=== PATIENT | female | born 1955 | race Caucasian/White ===

== ENCOUNTER 2025-03-03 12:44 | Outpatient (CLI) | payer MEDICARE ==
--- NOTE | 2025-03-03 14:38 | VASCULAR REPORT ---
Right lower extremity venous duplex Clinical History: Pain Comparison: None Technique: Duplex Doppler evaluation of the deep venous system of the right lower extremity from the common femo ral vein to the popliteal vein including color Doppler and spectral/pulsed waveform analysis was perf ormed. Findings: The common femoral vein demonstrates appropriate compressibility and waveform variability. There is compressibility/patency of the great saphenous vein at the proximal thigh. The femoral vein demonstrates appropriate compressibility and waveform variability. The deep femoral vein demonstrates appropriate compressibility and waveform variability. The popliteal vein demonstrates appropriate compressibility and waveform variability. There is normal compressibility at the tibioperoneal trunk. Impression: No right femoropopliteal venous thrombosis. Contralateral common femoral vein is patent.
== END 2025-03-03 23:59 | disposition home or self-care (01) ==
LOC: VAS 12:44
PROVIDERS: ATTEND Specialist
DX: I83.891 Varicose veins of right lower extremity with other complications (principal); R60.0 Localized edema
CPT/HCPCS: 93971

== ENCOUNTER 2025-08-16 08:39 | Outpatient (CLI) | payer MEDICARE, OTHER ==
[~2025-08-16 08:39] MED LIST: iohexol 300mg/ml 100ml inj. ONE
--- NOTE | 2025-08-16 11:50 | RADIOLOGY REPORT ---
PROCEDURE: CT CT ABDOMEN PELVIS W/WO IV CONTRAST 08/16/2025 09:22 AM INDICATION: NEOPLASM OF UNCERTAIN BEHAVIOR OF LEFT KIDNEY Comparison Study: None TECHNIQUE: Axial images were obtained prior and after uneventful intravenous administration of contrast and reformatted in coronal and sagittal planes. Noncontrast, nephrographic and urographic phases are acquired. All CT scans at this medical facility are performed using dose modulation techniques as appropriate to a performed exam including the following: Automated exposure control was utilized; adjustment of the MA and/or KV according to patient size; and use of iterative reconstruction technique. CT Dose: CTDI volume is 36, 35, 34 mGy. Dose-length product is 5029 mGy*cm FINDINGS: Lower Chest: Unremarkable. Hepatobiliary: Gallbladder is surgically absent. No discrete hepatic lesion noted. Mild CBD dilatation likely compensatory post cholecystectomy change. Spleen: Unremarkable. Pancreas: Unremarkable. Adrenal Glands: Unremarkable. tract: The kidneys are normal in size bilaterally without hydronephrosis or nephrolithiasis. No discrete renal lesion is identified. Both kidneys show symmetric nephrogram and excretion of contrast. The opacified part of the ureters are grossly unremarkable. The urinary bladder is unremarkable. GI tract: A small sliding hiatal hernia noted. No evidence of small bowel obstruction. Scattered colonic diverticula are noted without evidence of diverticulitis. The appendix is not visualized. No inflammatory change is noted in the right lower quadrant. Lymphatics: No mesenteric, retroperitoneal or periportal lymphadenopathy. Vasculature: The abdominal aorta is normal in caliber. Pelvic Organs: Unremarkable Bones/soft tissues: No acute abnormality. Multilevel degenerative changes of the lumbar spine noted. Mild multilevel degenerative grade 1 spondylolisthesis at L4-L5 and L3-L4 levels noted. Remote total left hip arthroplasty. Small fat containing umbilical and supraumbilical hernias are seen. Other: None. IMPRESSION: No CT evidence for acute intra-abdominal or intrapelvic process. No suspicious renal lesion.
== END 2025-08-16 23:59 | disposition home or self-care (01) ==
LOC: RAD 08:39
PROVIDERS: ATTEND Specialist
DX: D41.02 Neoplasm of uncertain behavior of left kidney (principal); K44.9 Diaphragmatic hernia without obstruction or gangrene; M47.816 Spondylosis without myelopathy or radiculopathy, lumbar region; Z90.49 Acquired absence of other specified parts of digestive tract; M43.16 Spondylolisthesis, lumbar region; K42.9 Umbilical hernia without obstruction or gangrene; Z96.642 Presence of left artificial hip joint
CPT/HCPCS: 74178; Q9967